=== PATIENT | female | born 1990 | race Caucasian/White ===

== ENCOUNTER 2022-01-06 11:22 | Outpatient (CLI) | payer BC, SELFPAY ==
[2022-01-06 11:55] LABS: Hematocrit 39.2 % (37.0-47.0); Hemoglobin 12.4 g/dL (12.0-15.0); Mean Corpuscular HGB Conc 31.6 g/dl (32-36); Mean Corpuscular Hemoglobin 24.5 pg (26-34); Mean Corpuscular Volume 77.5 fl (80-100); Mean Platelet Volume 11.7 fl (7.4-10.4); Platelet Count Result 257 k/mm3 (150-375); Red Blood Count 5.06 M/mm3 (4.2-5.4); Red Cell Distribution Width 18.9 % (11.5-14.5); White Blood Count 8.2 K/mm3 (4.5-10.0)
== END 2022-01-06 11:23 | disposition home or self-care (01) ==
PROVIDERS: Visit Provider Obstetrics & Gynecology Gynecologic Oncology
DX: Z01.818 Encounter for other preprocedural examination (principal)
CPT/HCPCS: 36415; 85027

== ENCOUNTER 2022-01-10 00:16 | Day surgery (SDC) | payer BC, SELFPAY ==
[2022-01-05 11:23] VITALS: BMI 42.0
--- NOTE | 2022-01-05 11:37 | PC.NURSE ---
Report to the Outpatient Waiting Room, entrance under the green pavilion located off [facility], at time 0700 on date 01/10/22. OR Time: 0900. - You and your visitor will be asked a series of questions to screen for COVID 19 for your protection. - Only one visitor is allowed at this time. - The patient visitor is requested to leave or wait in car when not with patient. - A mask is required within the hospital. Patients may have clear liquids (water, carbonated beverages, clear teas, apple juice) until 3 hours prior to surgery with a maximum of 20 ounces. - No food from midnight until time of surgery Take the following medications with a SIP of water the morning of surgery: NONE Medications to discontinue per physician: VITAMINS Date to take last dose: 01/06/22 Please no make-up, nail greenlandic, hairspray, perfume, deodorant, or body powder the day of surgery. No jewelry (including any body piercings) or valuables the day of surgery, leave them at home. Please take a shower or bath the night before, or the morning of, surgery with an antibacterial soap. Wear comfortable, loose fitting clothing. - Jewelry must be removed prior to entering the operating room. Rings and piercings that are not removed may be cut off. - The hospital will not accept responsibility for valuables. - Please leave all valuables, including medications, at home the day of surgery. If you are going home after surgery, a licensed automobile drivers must drive you home. - NO public transportation without another adult. - We recommend that an adult stay with you for 24 hours following discharge. - We also recommend that you do not drive, make important decision, drink alcoholic beverages, or take any drugs that were not prescribed by your health care provider for at least 24 hours after your discharge time. Follow any additional instructions given to you from your surgeon. If you or anyone in your household have experienced Covid symptoms in the past week, please notify your surgeon or the nurse liaison at the phone number below for possible testing. Telephone instructions given to PT - JEWELL DOMINGUEZ and asked if any additional questions and then verbalized understanding. Patient advised to call surgeon office or pre surgery nurse liaison [phone] if any additional questions.
--- NOTE | 2022-01-09 13:02 | P.PNAN_ITS ---
Anes - Initial Pre Proc Eval Procedure: Operation Date: 01/10/22 09:00 Proposed Procedures p Diagnostic Laparoscopy, Bilateral Laparoscopic Salpingectomy - La Haas DO Date/Time: 01/09/22 13:02 Surgeon: La Haas DO Pre Op Diagnosis: desires sterilization Patient Data Age: 31 Gender: F Height: 1.57 m Weight: 104.33 kg Allergies Allergy/AdvReac Type Severity Reaction Status Date / Time cefaclor [From Ceclor] Allergy Severe Hives Verified 01/10/22 07:34 Home Medications Medication Instructions Recorded Confirmed Type multivitamin 1 tablet PO DAILY 01/05/22 01/10/22 History Patient hx anesthesia problems: none Family hx anesthesia problems: none Results Review: All pre-operative results and documents have been reviewed as part of the pre-operative evaluation. COUNTS INCLUDE 234 BEDS AT THE [facility] Past Medical History Medical History (Updated 01/09/22 @ 13:03 by Robbi Gann MD) Morbid obesity with BMI of 40.0-44.9, adult Social History Social History Smoking status: Former smoker Smoking end date: 06/18/20 Additional smoking assessment comments: SOCIAL SMOKER - NOT EVERYDAY Alcohol intake: current Alcohol use details: RARE Substance use: never Substance use type: does not use Living arrangements: with family Spiritual care concerns: No Anes - Eval Final PreProcedure Day of Procedure 01/09/22 13:02 Patient weight: morbidly obese Heart: regular rate and rhythm Lungs: clear to auscultation and normal air movement Airway: Mallampati scale class II Neurological: alert and oriented Last oral intake: >/= 8 hours ASA classification: III Emergent: no Anesthetic plan: proceed Anesthesia type and monitoring: general ETT Results Review: All pre-operative results and documents have been reviewed as part of the pre- operative evaluation. Informed Consent: The patient's anesthetic plan and its attendant risks and benefits were discussed with the patient/family/POA. Questions were solicited and answers provided to the satisfaction of the patient/family/POA.
[2022-01-10] VITALS (7 sets, daily range): BP systolic 108–129; BP diastolic 69–93; PULSE 59–81; RESP 12–18; TEMP 36.5–36.7; O2SAT 96–100
[2022-01-10] MEDS: LACTATED RINGERS 1,000 ML 30 ML IV CONT ×2 (07:48→10:22)
[2022-01-10] MEDS: GABAPENTIN 300 MG CAPSULE PO (07:55)
[2022-01-10] MEDS: ACETAMINOPHEN 500 MG TABLET 1000 MG PO (07:55)
--- NOTE | 2022-01-10 07:58 | SUR.PREOP ---
0800 pt states has incentive spirometer at home and able to verbalize how to use
--- NOTE | 2022-01-10 08:32 | PM.IMHP ---
H&P: HPI History of Present Illness Date/Time: 01/10/22 08:32 Chief Complaint: I'm here to have my tubes out Narrative: Patient here with undesired fertility, requesting bilateral salpingectomy Review of Systems Review of Systems: All systems reviewed & are unremarkable except as noted in HPI and below PMFSH Past Medical History Medical History (Updated 01/10/22 @ 08:34 by La Haas DO) Morbid obesity with BMI of 40.0-44.9, adult Social History Social History Smoking status: Former smoker Smoking end date: 06/18/20 Additional smoking assessment comments: SOCIAL SMOKER - NOT EVERYDAY Alcohol intake: current Alcohol use details: RARE Substance use: never Substance use type: does not use Living arrangements: with family Spiritual care concerns: No Meds Home Medications and Allergies Home Medications Medication Instructions Recorded Confirmed Type multivitamin 1 tablet PO DAILY 01/05/22 01/10/22 History Allergies Allergy/AdvReac Type Severity Reaction Status Date / Time cefaclor [From Ceclor] Allergy Severe Hives Verified 01/10/22 07:34 Vital Signs Vital Signs - 24 hr 01/10/22 07:21 Temperature 36.7 C Pulse Rate 75 Respiratory Rate 16 Blood Pressure 108/69 Pulse Oximetry 100 Oxygen Delivery Room Air Exam Const: General: comfortable and no acute distress Eyes: General: appearance normal, both eyes and all related structures Neck: Neck: supple Resp: Effort & Inspection: normal respiratory effort Auscultation: clear to auscultation bilaterally Cardio: Rate: regular rate Rhythm: regular rhythm GI: GI Palp: Yes Soft to palpation Auscultation: normal bowel sounds Skin: General skin exam: normal color and no rashes or lesions noted Neuro: General: gait normal Speech: normal speech Motor exam (neuro): 5/5 motor strength present throughout Sensory Exam: normal sensation Extrem: General: normal to inspection Psych: Mental Status: mental status grossly normal Assessment and Plan Assessment and plan (1) Sterilization: Code(s): Z30.2 - Encounter for sterilization Status: Acute Assessment and Plan: Undesired fertility Plan Diagnostic laparoscopy, bilateral salpingectomy Quality VTE Prophylaxis VTE prophylaxis: mechanical ordered
--- NOTE | 2022-01-10 08:35 | WPDHPUPDATE1 ---
History and Physical Update Update Date/Time: 01/10/22 08:35 History and Physical has been reviewed, including an updated exam of the patient. There are NO changes in the patient's condition. Risks, benefits, and alternatives have been discussed and questions answered. Patient agrees to proceed with procedure.
[2022-01-10] MEDS: BUPIVACAINE/EPINEPHRINE 0.25% 50 ML VIAL 20 ML INFILTRATE (09:34)
--- NOTE | 2022-01-10 09:47 | P.OP_ITS ---
Procedure Note - Detailed Date of Procedure 01/10/22 Pre-op Diagnosis desires sterilization Post-op Diagnosis Same Procedure Performed Diagnostic laparoscopy, bilateral salpingectomy Surgeon La Haas, DO Anesthesia General Indications Undesired fertility Findings Normal appearing vulva and vaginal canal. Small cervix. Internally, normal bowel and liver. Normal pelvic organs. Description of Procedure Patient was taken to the operating room where she was placed under general anesthesia. She was prepped and draped in the normal sterile fashion in a dorsal lithotomy position. No preoperative antibiotics were indicated after a time-out was performed, a speculum was placed in the vagina and the cervix was visualized. The single-tooth tenaculum was used to grasp the anterior lip of the cervix. The cervix was sequentially dilated up to accommodate a Kroner uterine manipulator. Once the manipulator was placed the tenaculum and speculum were removed. Gloves were changed and attention was then turned to the abdomen. The skin below the umbilicus was grasped with 2 penetrating towel clamps and the skin was injected with local anesthetic. A small incision was made and a Veress needle was introduced. The initial insertion of the Veress needle was unsuccessful and the saline water drop test did not confirm intraperitoneal placement. Therefore, due to the patient's habitus I elected to approach insertion of the trocar directly. A 5mm Optiview trocar was inserted over the camera and entry into the abdominal cavity was gained successfully and atraumatically. CO2 insufflation was started and the abdomen was brought up to a filling pressure of 15 mmHg. Patient was then placed in steep Trendelenburg position. Survey of the abdomen revealed no evidence of bowel or vascular injury upon entry. Additional trocar sites in the right and left lower quadrants were identified, injected and incised. 5 mm trocars were introduced under direct visualization. Pelvic organs were then examined and the above- mentioned findings were noted. The left tube was elevated and then cauterized and transected off and passed off through the contract administrative assistant port. In an identical fashion, the right tube was elevated and cauterized and transected off using the LigaSure. It was passed off through the contract administrative assistant port. The surgical pedicles were reexamined and found to be hemostatic. The instruments and trocars were removed and the CO2 insufflation was allowed to escape from the abdomen. The abdominal incisions were closed with subcuticular 4-0 Monocryl. The skin incisions were covered with Mastisol and Steri-Strips. Uterine manipulator was removed. Patient was taken to the recovery room in stable condition. All instrument sponge counts were correct at the conclusion of the procedure. Estimated Blood Loss 5 IV Fluids 800 Drains No Packing No Pathology Yes Complications No immediate complications Condition Stable Disposition PACU
--- NOTE | 2022-01-10 09:55 | SUR.PHASEI ---
0949- oral airway removed.
[2022-01-10] MEDS: ONDANSETRON INJ 4 MG/2 ML VIAL IV PUSH (10:03)
[2022-01-10] MEDS: diphenhydrAMINE HCl INJ 50 MG/ML VIAL 25 MG IV PUSH (10:19)
[2022-01-10] MEDS: HALOPERIDOL LACTATE 5 MG/ML VIAL 1 MG IV PUSH (10:19)
[2022-01-10] MEDS: fentaNYL CITRATE INJ (*CRX) 100 MCG/2 ML VIAL 25 MCG IV PUSH (10:24)
--- NOTE | 2022-01-10 11:04 | SUR.PHASEII ---
pt said she is breast feeding and she forgot her pump and supplies. she said her baby is 2 months old. This nurse called OB 2 floor and they said that they can get her a pump to borrow and supplies to buy but the OB nurse was unsure if insurance would cover it or how much it would cost out of pocket. The OB nurse offered free bottles for her to self express. pt offered all those options and refused and said she will just pump when she gets home. [place]
== END 2022-01-10 11:50 | disposition home or self-care (01) ==
PROVIDERS: Visit Provider Obstetrics & Gynecology Gynecologic Oncology
PROC: (CPT 49320; principal; 2022-01-10 09:00)
DX: Z30.2 Encounter for sterilization (principal); Z87.891 Personal history of nicotine dependence; E66.01 Morbid (severe) obesity due to excess calories; Z68.41 Body mass index [BMI] 40.0-44.9, adult
CPT/HCPCS: 58661; 36415; 86850; 86900; 86901; 88302; A9270; J1100; J1200; J1630; J1885; J2250; J2405; J2704; J3010; J7120